=== PATIENT | male | born 1970 | race Caucasian/White ===

== ENCOUNTER → 2021-08-17 | Outpatient (CLI) | payer OTHER, MEDICAID ==
[~2021-08-17] MED LIST: CELECOXIB200 MG PO; LEVAQUIN 250 M250 MG PO; NEXIUM40 MG PO; NORVASC10 MG PO; PREDNISONE 20 M20 MG PO; SPACERADULT; TRIAMTERENE-HC1 EAC1 PO; VENTOLIN HFA 1818 GM INH
== END ==
LOC: M.LAB 11:54
PROVIDERS: ATTEND Internal Medicine Gastroenterology
DX: Z01.812 Encounter for preprocedural laboratory examination (principal); Z20.822 Contact with and (suspected) exposure to COVID-19; E87.6 Hypokalemia